=== PATIENT | female | born 2000 | race African-American/Black ===

== ENCOUNTER 2021-03-20 10:05 | Emergency (ER) | payer OTHER ==
[~2021-03-20] VITALS: Ht 154.9 cm; Wt 63.5 kg
[2021-03-20 12:03] LABS: HEMOGLOBIN 13.6 g/dl (12.0-15.5); MEAN CORPUSCULAR HEMOGLOBIN 31.7 pg (27.0-33.0); MEAN CORPUSCULAR VOLUME 93.2 fl (80.0-96.0); PLATELET COUNT, AUTOMATED 378 10^3/uL (150-450); RED BLOOD COUNT 4.29 10^6/uL (4.00-5.40); WHITE BLOOD COUNT 8.3 10^3/uL (4.0-10.0)
--- NOTE | 2021-03-20 12:35 | REP ---
INDICATION: vaginal bleeding 3 weeks gestation. COMPARISON: None. TECHNIQUE: Transvesical and transvaginal imaging FINDINGS: The uterus measures 8.2 x 4.1 x 4.5 cm. The parenchymal echo pattern is within normal limits. The endometrial echo complex is trilaminar measuring 1 cm in thickness. There is no free fluid in the endometrial cavity. There is no gestational sac. There is an incidental small cyst in the myometrium. The right ovary measures 2.2 x 1.6 x 3.2 cm and is within normal limits with an RI 0.48 The left ovary measures 3.3 x 1.8 x 2.4 cm and is within normal limits with an RI 0.53 The urinary bladder measures 7.6 x 2.5 cm. IMPRESSION: Pelvic ultrasonography is within normal limits. There is no evidence of an intrauterine or extra uterine . <Electronically signed by Carroll Schwartz > 03/20/21 [id number]
[2021-03-20 13:39] LABS: GC DNA AMPLIFICATION NEGATIVE (NEGATIVE)
[2021-03-20 14:20] VITALS: BP 110/68
== END 2021-03-20 14:19 | disposition home or self-care (01) ==
LOC: M ED 10:05
DX: Z32.01 Encounter for pregnancy test, result positive (principal); O20.8 Other hemorrhage in early pregnancy; Z3A.01 Less than 8 weeks gestation of pregnancy

== ENCOUNTER 2021-05-23 11:50 | Emergency (ER) | payer OTHER ==
[~2021-05-23] VITALS: Ht 154.9 cm; Wt 125.0 kg
[2021-05-23 14:36] VITALS: BP 114/66
== END 2021-05-23 14:37 | disposition home or self-care (01) ==
LOC: M ED 11:50
DX: Z32.01 Encounter for pregnancy test, result positive (principal)

== ENCOUNTER 2021-05-30 12:51 | Emergency (ER) | payer OTHER ==
[~2021-05-30] VITALS: Ht 154.9 cm; Wt 63.0 kg
[2021-05-30] MEDS ORDERED: NS 1,000 ML IV ONE (15:50)
[2021-05-30] MEDS ORDERED: METOCLOPRAMIDE INJ 10MG/2ML VIAL (J2765 PER 1) IV ONE (15:50)
[2021-05-30 16:43] LABS: BASO # 0.1 10^3/uL (0.0-0.2); BASO % 0.6 % (0.0-1.0); HEMATOCRIT 40.7 % (36.0-47.0); HEMOGLOBIN 13.8 g/dl (12.0-15.5); LYMPH # 2.4 10^3/uL (1.5-5.0); MEAN CORPUSCULAR HEMOGLOBIN 30.9 pg (27.0-33.0); MEAN CORPUSCULAR HGB CONC 33.9 g/dl (32.0-36.5); MEAN CORPUSCULAR VOLUME 91.3 fl (80.0-96.0); MONO # 0.7 10^3/uL (0.0-0.8); MONO % 5.8 % (2.0-8.0); NEUTROPHILS # 9.4 10^3/uL (1.5-8.5); NEUTROPHILS % 74.2 % (36.0-66.0); PLATELET COUNT, AUTOMATED 328 10^3/uL (150-450); RED BLOOD COUNT 4.46 10^6/uL (4.00-5.40); WHITE BLOOD COUNT 12.6 10^3/uL (4.0-10.0)
[2021-05-30 17:34] LABS: ALBUMIN 3.6 GM/DL (3.2-5.2); ALT/SGPT 17 U/L (12-78); BILIRUBIN,DIRECT 0.2 MG/DL (0.0-0.2); BILIRUBIN,TOTAL 0.3 MG/DL (0.2-1.0); BLOOD UREA NITROGEN 11 MG/DL (7-18); CALCIUM LEVEL 8.9 MG/DL (8.5-10.1); CARBON DIOXIDE LEVEL 18 MEQ/L (21-32); CHLORIDE LEVEL 104 MEQ/L (98-107); CREATININE FOR GFR 0.78 MG/DL (0.55-1.30); GLUCOSE, FASTING 58 MG/DL (70-100); HCG, SERUM QUANTITATIVE 55665 MIU/ML; LIPASE 64 U/L (73-393); POTASSIUM SERUM 4.3 MEQ/L (3.5-5.1); SODIUM LEVEL 134 MEQ/L (136-145); TOTAL PROTEIN 7.8 GM/DL (6.4-8.2)
[2021-05-30] MEDS ORDERED: ONDANSETRON 4MG/2ML VIAL IV ONE (17:35)
[2021-05-30] MEDS ORDERED: ONDA4TAB6 PO (18:02)
[2021-05-30 18:33] VITALS: BP 106/56
== END 2021-05-30 18:37 | disposition home or self-care (01) ==
LOC: M ED 12:51
DX: O21.9 Vomiting of pregnancy, unspecified (principal)
CPT/HCPCS: 80048; 80076; 83690; 84702; 85025; 96361; 96374; 96375; 99284; J2405; J2765

== ENCOUNTER 2021-07-04 19:36 | Emergency (ER) | payer OTHER ==
[~2021-07-04] VITALS: Ht 154.9 cm; Wt 59.1 kg
[~2021-07-04 19:36] MED LIST: ONDA4TAB6 PO
[2021-07-04] MEDS ORDERED: PREN1TAB11 PO (19:57)
[2021-07-04 20:17] LABS: BASO # 0.1 10^3/uL (0.0-0.2); BASO % 0.5 % (0.0-1.0); EOS # 0.1 10^3/uL (0.0-0.5); EOS % 0.8 % (0.0-3.0); HEMATOCRIT 35.4 % (36.0-47.0); LYMPH # 4.1 10^3/uL (1.5-5.0); LYMPH % 30.4 % (24.0-44.0); MEAN CORPUSCULAR HEMOGLOBIN 30.7 pg (27.0-33.0); MEAN CORPUSCULAR HGB CONC 33.9 g/dl (32.0-36.5); MEAN CORPUSCULAR VOLUME 90.5 fl (80.0-96.0); MONO # 0.9 10^3/uL (0.0-0.8); MONO % 6.9 % (2.0-8.0); NEUTROPHILS # 8.3 10^3/uL (1.5-8.5); PLATELET COUNT, AUTOMATED 326 10^3/uL (150-450); RED BLOOD COUNT 3.91 10^6/uL (4.00-5.40); WHITE BLOOD COUNT 13.6 10^3/uL (4.0-10.0)
[2021-07-04 21:04] LABS: BLOOD UREA NITROGEN 9 MG/DL (7-18); CARBON DIOXIDE LEVEL 24 MEQ/L (21-32); CHLORIDE LEVEL 107 MEQ/L (98-107); GLUCOSE, FASTING 75 MG/DL (70-100); HCG, SERUM QUANTITATIVE 196503 MIU/ML; POTASSIUM SERUM 4.3 MEQ/L (3.5-5.1); SODIUM LEVEL 136 MEQ/L (136-145)
[2021-07-05 00:05] LABS: GC DNA AMPLIFICATION NEGATIVE (NEGATIVE)
[2021-07-05] MEDS ORDERED: NITROFURANTOIN (MACROBID) 100 MG CAP PO ONE (00:10)
[2021-07-05] MEDS ORDERED: MACR100C43 PO (00:11)
[2021-07-05 00:56] VITALS: BP 118/68
== END 2021-07-05 00:58 | disposition home or self-care (01) ==
LOC: M ED 19:36
DX: O23.41 Unspecified infection of urinary tract in pregnancy, first trimester (principal); O30.041 Twin pregnancy, dichorionic/diamniotic, first trimester; Z3A.11 11 weeks gestation of pregnancy

== ENCOUNTER 2021-10-17 13:49 | Emergency (ER) | payer OTHER ==
[~2021-10-17 13:49] MED LIST changes: +MACR100C43 PO; +PREN1TAB11 PO
[2021-10-17] MEDS ORDERED: ONDANSETRON 4MG/2ML VIAL IV ONE (14:20)
[2021-10-17 14:55] LABS: BASO # 0.1 10^3/uL (0.0-0.2); BASO % 0.5 % (0.0-1.0); EOS # 0.1 10^3/uL (0.0-0.5); EOS % 0.7 % (0.0-3.0); HEMATOCRIT 35.3 % (36.0-47.0); HEMOGLOBIN 12.1 g/dl (12.0-15.5); MEAN CORPUSCULAR HEMOGLOBIN 31.9 pg (27.0-33.0); MEAN CORPUSCULAR HGB CONC 34.3 g/dl (32.0-36.5); MEAN CORPUSCULAR VOLUME 93.1 fl (80.0-96.0); NEUTROPHILS # 8.3 10^3/uL (1.5-8.5); NEUTROPHILS % 72.2 % (36.0-66.0); PLATELET COUNT, AUTOMATED 325 10^3/uL (150-450); RED BLOOD COUNT 3.79 10^6/uL (4.00-5.40); WHITE BLOOD COUNT 11.5 10^3/uL (4.0-10.0)
[2021-10-17 15:21] LABS: BLOOD UREA NITROGEN 7 MG/DL (7-18); CALCIUM LEVEL 8.7 MG/DL (8.5-10.1); CARBON DIOXIDE LEVEL 21 MEQ/L (21-32); CHLORIDE LEVEL 109 MEQ/L (98-107); CREATININE FOR GFR 0.61 MG/DL (0.55-1.30); GLUCOSE, FASTING 91 MG/DL (70-100); POTASSIUM SERUM 4.1 MEQ/L (3.5-5.1); SODIUM LEVEL 137 MEQ/L (136-145)
[2021-10-17] MEDS ORDERED: ONDA4TAB6 PO (16:47)
[2021-10-17 17:00] VITALS: BP 134/83
== END 2021-10-17 17:02 | disposition home or self-care (01) ==
LOC: EDBD 13:49 → M ED 13:49
DX: O99.891 Other specified diseases and conditions complicating pregnancy (principal); R55 Syncope and collapse; Z3A.00 Weeks of gestation of pregnancy not specified
CPT/HCPCS: 80048; 85025; 93005; 93041; 94760; 96374; 99285; J2405

== ENCOUNTER 2021-12-05 00:15 | Inpatient (IN) | payer OTHER ==
[2021-12-05] VITALS (35 sets, daily range): BP systolic 128–212; BP diastolic 71–129
[~2021-12-05] VITALS: Ht 157.5 cm; Wt 85.4 kg
[2021-12-05] MEDS ORDERED: LACTATED RINGER'S 1000 ML IV STA (00:56)
[2021-12-05] MEDS ORDERED: PENICILLIN G POTASSIUM IV 5 MU in D5W MINI-BAG PLUS 100 ML IV STA (00:56)
[2021-12-05] MEDS ORDERED: OXYTOCIN DRIP 30 UNITS in IV 1 EA IV PRN ×4 (01:00)
[2021-12-05] MEDS ORDERED: LR 1,000 ML IV SCH (01:00)
[2021-12-05] MEDS ORDERED: CARBOPROST TROMETHAMINE 250 MCG/ML AMP IM PRN (01:00)
[2021-12-05] MEDS ORDERED: LIDOCAINE 1% MDV 20ML VIAL INFIL PRN (01:00)
[2021-12-05] MEDS ORDERED: BETAMETHASONE SOLUSPAN 6MG/ML 5ML VIAL (J0702 PER 3MG) IM SCH (01:00)
[2021-12-05] MEDS ORDERED: METHYLERGONOVINE MALEATE 0.2 MG/ML VIAL (J2210) IM PRN (01:00)
[2021-12-05] MEDS ORDERED: TRANEXAMIC ACID INJection 1,000 MG in NS 100 ML IV PRN (01:00)
[2021-12-05 01:55] LABS: HEMATOCRIT 34.8 % (36.0-47.0); HEMOGLOBIN 11.6 g/dl (12.0-15.5); MEAN CORPUSCULAR HEMOGLOBIN 29.9 pg (27.0-33.0); MEAN CORPUSCULAR HGB CONC 33.3 g/dl (32.0-36.5); MEAN CORPUSCULAR VOLUME 89.7 fl (80.0-96.0); PLATELET COUNT, AUTOMATED 312 10^3/uL (150-450); RED BLOOD COUNT 3.88 10^6/uL (4.00-5.40); WHITE BLOOD COUNT 15.9 10^3/uL (4.0-10.0)
[2021-12-05 02:06] LABS: APPEARANCE, URINE CLEAR (CLEAR); BACTERIA, URINE AUTO NEGATIVE (NEGATIVE); BILIRUBIN, URINE AUTO NEGATIVE (NEGATIVE); BLOOD, URINE BLOOD 1+ (NEGATIVE); COLOR, URINE YELLOW (YELLOW); GLUCOSE, URINE (UA) AUTO NEGATIVE (NEGATIVE); KETONE, URINE AUTO NEGATIVE (NEGATIVE); LEUKOCYTE ESTERASE, URINE AUTO NEGATIVE (NEGATIVE); NITRITE, URINE AUTO NEGATIVE (NEGATIVE); PROTEIN, URINE AUTO 3+ mg/dL (NEGATIVE); RBC, URINE AUTO 0 /HPF (0-3); SPECIFIC GRAVITY URINE AUTO 1.007 (1.002-1.035); SQUAMOUS EPITHELIAL CELL UR AU 0 /HPF (0-6); UROBILINOGEN, URINE AUTO 0.2 mg/dL (0.0-2.0); WBC, URINE AUTO 2 /HPF (0-3)
[2021-12-05] MEDS ORDERED: LR 500 ML IV PRN (02:10)
[2021-12-05] MEDS ORDERED: diphenhydrAMINE 50MG/ML VIAL (J1200) IV PRN (02:10)
[2021-12-05] MEDS ORDERED: EPIDURAL/PCA KEYS XX PRN (02:10)
[2021-12-05] MEDS ORDERED: NALOXONE INJ 0.4MG/1ML VIAL (J2310 PER 1MG) IV PRN (02:10)
[2021-12-05] MEDS ORDERED: ePHEDrine SULFATE 25 MG/5 ML(5MG/ML) SYRINGE IVP PRN (02:10)
[2021-12-05] MEDS ORDERED: ONDANSETRON 4MG 2ML VIAL IV PRN ×2 (02:10→05:20)
[2021-12-05] MEDS ORDERED: FENTANYL/ROPIVACAINE/NACL BAG 100 ML EPIDURAL SCH (02:10)
[2021-12-05 02:16] LABS: ALT/SGPT 18 U/L (12-78); BILIRUBIN,TOTAL < 0.1 MG/DL (0.2-1.0); CREATININE FOR GFR 0.82 MG/DL (0.55-1.30); LDH LACTATE DEHYDROGENASE 233 U/L (84-246); URIC ACID 6.7 MG/DL (2.6-6.0)
[2021-12-05] MEDS ORDERED: FENTANYL 2MCG/ML ROPIVACAINE 0.2% IN 0.9% NACL 100ML IVBAG As Ordered ONE (02:18)
[2021-12-05 03:35] LABS: GC DNA AMPLIFICATION NEGATIVE (NEGATIVE)
[2021-12-05 05:19] LABS: CORD GAS ABE V -10.7; CORD GAS HCO3 V 17.6 MEQ/L; CORD GAS O2 SAT V 80.8 %; CORD GAS PCO2 V 48.4 mmHg; CORD GAS PH V 7.179 UNITS; CORD GAS PO2 V 39.8 mmHg; CORD GAS SBC V 15.8 MEQ/L; CORD GAS TCO2 V 19.1 MEQ/L
[2021-12-05] MEDS ORDERED: OXYTOCIN DRIP 30 UNITS in IV 1 EA IV SCH ×4 (05:20)
[2021-12-05] MEDS ORDERED: RHOGAM 300 MCG (1500 IU) INJ (J2790) IM SCH (05:20)
[2021-12-05] MEDS: LR 1,000 ML IV SCH ×2 (05:20→13:20)
[2021-12-05] MEDS ORDERED: METHYLERGONOVINE MALEATE 0.2 MG TAB PO PRN (05:20)
[2021-12-05] MEDS ORDERED: DIBUCAINE 1% OINTMENT 30GM TOP PRN (05:20)
[2021-12-05] MEDS ORDERED: PROMETHAZINE 25 MG TAB PO PRN (05:20)
[2021-12-05] MEDS ORDERED: DOCUSATE SODIUM 100MG CAPSULE PO PRN (05:20)
[2021-12-05 05:21] LABS: CORD GAS ABE A -12.3; CORD GAS HCO3 A 17.5 MEQ/L; CORD GAS O2 SAT A 40.6 %; CORD GAS PCO2 A 56.5 mmHg; CORD GAS PH A 7.108 UNITS; CORD GAS PO2 A 23.4 mmHg; CORD GAS SBC A 13.9 MEQ/L; CORD GAS TCO2 A 19.2 MEQ/L
[2021-12-05] MEDS ORDERED: PENICILLIN G POTASSIUM IV 2.5 MU in IV 1 EA IV SCH (05:30)
[2021-12-05 05:33] LABS: CORD GAS ABE V -8.9; CORD GAS O2 SAT V 51.7 %; CORD GAS PCO2 V 47.7 mmHg; CORD GAS PH V 7.217 UNITS; CORD GAS PO2 V 24.9 mmHg; CORD GAS SBC V 16.5 MEQ/L; CORD GAS TCO2 V 20.4 MEQ/L
[2021-12-05] MEDS: LABETALOL 200 MG TAB PO SCH ×2 (06:21→17:39)
[2021-12-05] MEDS ORDERED: hydrALAZINE 20MG/ML 1ML VIAL (J0360 PER 20MG) IV STA (06:58)
[2021-12-05] MEDS: IBUPROFEN 800 MG TAB PO SCH ×3 (07:13→21:37)
[2021-12-05] MEDS: ACETAMINOPHEN 500 MG TAB PO SCH ×4 (07:14→23:36)
[2021-12-05] MEDS ORDERED: PRENATAL VITAMINS CHEWABLE TABLET PO SCH (09:00)
[2021-12-05] MEDS: PRENATAL VITAMINS CHEWABLE TABLET PO SCH (09:00)
[2021-12-06] VITALS (7 sets, daily range): BP systolic 131–162; BP diastolic 72–98
[2021-12-06] MEDS: IBUPROFEN 800 MG TAB PO SCH ×3 (05:46→21:20)
[2021-12-06] MEDS: LABETALOL 200 MG TAB PO SCH ×2 (05:46→18:33)
[2021-12-06] MEDS: ACETAMINOPHEN 500 MG TAB PO SCH ×4 (05:47→23:20)
[2021-12-06 07:07] LABS: HEMATOCRIT 30.4 % (36.0-47.0); HEMOGLOBIN 10.2 g/dl (12.0-15.5); MEAN CORPUSCULAR HEMOGLOBIN 30.4 pg (27.0-33.0); MEAN CORPUSCULAR HGB CONC 33.6 g/dl (32.0-36.5); MEAN CORPUSCULAR VOLUME 90.5 fl (80.0-96.0); PLATELET COUNT, AUTOMATED 265 10^3/uL (150-450); RED BLOOD COUNT 3.36 10^6/uL (4.00-5.40)
[2021-12-06] MEDS: PRENATAL VITAMINS CHEWABLE TABLET PO SCH (09:19)
[2021-12-07 02:00] VITALS: BP 150/98
[2021-12-07] MEDS: IBUPROFEN 800 MG TAB PO SCH ×3 (05:20→21:20)
[2021-12-07] MEDS: ACETAMINOPHEN 500 MG TAB PO SCH ×4 (05:20→23:20)
[2021-12-07] MEDS: LABETALOL 200 MG TAB PO SCH ×2 (05:53→17:36)
[2021-12-07 06:00] VITALS: BP 131/72
[2021-12-07] MEDS ORDERED: LABE20TAB PO (06:26)
[2021-12-07] MEDS ORDERED: ACET-683 PO (06:26)
[2021-12-07] MEDS ORDERED: IBUP80TA PO (06:26)
[2021-12-07] MEDS ORDERED: COLA100C5 PO (06:26)
[2021-12-07] MEDS: PRENATAL VITAMINS CHEWABLE TABLET PO SCH (09:00)
[2021-12-07] MEDS ORDERED: MEASLES,MUMPS,RUBELLA VACCINE INJ (MMR-II) (90707) SC.IMMUN ONE (09:00)
[2021-12-07 10:59] VITALS: BP 137/87
[2021-12-07 13:50] VITALS: BP 133/85
[2021-12-07 17:30] VITALS: BP 146/90
[2021-12-07 22:00] VITALS: BP 121/74
[2021-12-08 02:00] VITALS: BP 139/71
[2021-12-08] MEDS: ACETAMINOPHEN 500 MG TAB PO SCH ×2 (05:20→11:20)
[2021-12-08] MEDS: IBUPROFEN 800 MG TAB PO SCH (05:20)
[2021-12-08 06:20] VITALS: BP 135/75
[2021-12-08 06:22] VITALS: BP 135/75
[2021-12-08] MEDS: LABETALOL 200 MG TAB PO SCH (06:22)
[2021-12-08] MEDS: PRENATAL VITAMINS CHEWABLE TABLET PO SCH (09:00)
[2021-12-08 10:00] VITALS: BP 124/76
== END 2021-12-08 14:00 | disposition home or self-care (01) | DRG 807 ==
LOC: M LDO 00:15 → M LDI 01:00 → M OBS 09:34
PROVIDERS: ADMIT Obstetrics & Gynecology; ATTEND Obstetrics & Gynecology
PROC: 10E0XZZ Delivery of Products of Conception, External Approach (ICD-10-PCS; principal; 2021-12-05)
PROC: 10907ZC Drainage of Amniotic Fluid, Therapeutic from Products of Conception, Via Natural or Artificial Opening (ICD-10-PCS; 2021-12-05)
DX: O60.14X0 Preterm labor third trimester with preterm delivery third trimester, not applicable or unspecified (principal); Z37.2 Twins, both liveborn; Z3A.33 33 weeks gestation of pregnancy; O30.043 Twin pregnancy, dichorionic/diamniotic, third trimester; O99.824 Streptococcus B carrier state complicating childbirth; O32.1XX2 Maternal care for breech presentation, fetus 2

== ENCOUNTER → 2022-07-25 | Outpatient (REF) | payer OTHER ==
[~2022-07-25] MED LIST changes: +ACET-683 PO; +COLA100C5 PO; +IBUP80TA PO; +LABE20TAB PO
== END ==
LOC: M LAB REF 21:55
PROVIDERS: ATTEND Physician Assistant
DX: Z32.00 Encounter for pregnancy test, result unknown (principal)

== ENCOUNTER 2022-08-07 13:08 | Emergency (ER) | payer OTHER ==
[~2022-08-07] VITALS: Ht 154.9 cm; Wt 75.4 kg
[2022-08-07 13:57] LABS: BASO # 0.1 10^3/uL (0.0-0.2); BASO % 0.7 % (0.0-1.0); EOS # 0.1 10^3/uL (0.0-0.5); HEMATOCRIT 38.6 % (36.0-47.0); HEMOGLOBIN 12.6 g/dl (12.0-15.5); LYMPH # 2.5 10^3/uL (1.5-5.0); LYMPH % 21.4 % (24.0-44.0); MEAN CORPUSCULAR HEMOGLOBIN 29.6 pg (27.0-33.0); MEAN CORPUSCULAR HGB CONC 32.6 g/dl (32.0-36.5); MEAN CORPUSCULAR VOLUME 90.6 fl (80.0-96.0); MONO # 0.9 10^3/uL (0.0-0.8); MONO % 7.3 % (2.0-8.0); NEUTROPHILS # 8.1 10^3/uL (1.5-8.5); NEUTROPHILS % 69.2 % (36.0-66.0); PLATELET COUNT, AUTOMATED 398 10^3/uL (150-450); RED BLOOD COUNT 4.26 10^6/uL (4.00-5.40); WHITE BLOOD COUNT 11.7 10^3/uL (4.0-10.0)
[2022-08-07 14:32] LABS: ALBUMIN 3.4 G/DL (3.2-5.2); BILIRUBIN,DIRECT 0.1 MG/DL (<0.4); BILIRUBIN,TOTAL 0.4 MG/DL (0.3-1.2); TOTAL PROTEIN 7.1 G/DL (5.7-8.2)
[2022-08-07 14:41] LABS: HCG, SERUM QUANTITATIVE 10806.8 MIU/ML (<4.2)
[2022-08-07] MEDS ORDERED: ONDANSETRON 4MG 2ML VIAL IV ONE (18:00)
[2022-08-07] MEDS ORDERED: NS 1,000 ML IV ONE (18:00)
[2022-08-07 19:11] LABS: BLOOD UREA NITROGEN 11 MG/DL (9-23); CALCIUM LEVEL 9.3 MG/DL (8.5-10.1); CARBON DIOXIDE LEVEL 23 MMOL/L (20-31); CHLORIDE LEVEL 104 MMOL/L (98-107); GLOMERULAR FILTRATION RATE > 60.0 (>60); GLUCOSE, FASTING 66 MG/DL (60-100); SODIUM LEVEL 134 MMOL/L (136-145)
[2022-08-07 20:03] LABS: GC DNA AMPLIFICATION NEGATIVE (NEGATIVE)
[2022-08-07] MEDS ORDERED: cefTRIAXone SOD 1 GM in D5W MINI-BAG PLUS 50 ML IV ONE (20:15)
[2022-08-07] MEDS ORDERED: CIPR500T39 PO (20:17)
[2022-08-07 21:20] VITALS: BP 128/66
== END 2022-08-07 21:29 | disposition home or self-care (01) ==
LOC: M ED 13:08
DX: O23.01 Infections of kidney in pregnancy, first trimester (principal); Z3A.01 Less than 8 weeks gestation of pregnancy
CPT/HCPCS: 76801; 76817; 80047; 80048; 80076; 81000; 81015; 83690; 84702; 85025; 87086; 87428; 87661; 87810; 87850; 93005; 93976; 96361; 96365; 96375; 99284; J0696; J2405

== ENCOUNTER 2022-08-11 14:45 | Emergency (ER) | payer OTHER ==
[~2022-08-11] VITALS: Ht 154.9 cm; Wt 74.6 kg
[~2022-08-11 14:45] MED LIST changes: +CIPR500T39 PO
[2022-08-11] MEDS ORDERED: NS 1,000 ML IV ONE (15:35)
[2022-08-11] MEDS ORDERED: ONDANSETRON 4MG 2ML VIAL IV ONE (15:35)
[2022-08-11 16:07] LABS: APPEARANCE, URINE HAZY (CLEAR); BACTERIA, URINE AUTO NEGATIVE (NEGATIVE); BILIRUBIN, URINE AUTO NEGATIVE (NEGATIVE); BLOOD, URINE BLOOD 1+ (NEGATIVE); COLOR, URINE YELLOW (YELLOW); GLUCOSE, URINE (UA) AUTO NEGATIVE (NEGATIVE); KETONE, URINE AUTO 1+ mg/dL (NEGATIVE); LEUKOCYTE ESTERASE, URINE AUTO 2+ (NEGATIVE); MUCUS, URINE SMALL (NEGATIVE); NITRITE, URINE AUTO NEGATIVE (NEGATIVE); PROTEIN, URINE AUTO NEGATIVE (NEGATIVE); RBC, URINE AUTO 3 /HPF (0-3); SPECIFIC GRAVITY URINE AUTO 1.015 (1.002-1.035); SQUAMOUS EPITHELIAL CELL UR AU 10 /HPF (0-6); UROBILINOGEN, URINE AUTO 0.2 mg/dL (0.0-2.0); WBC, URINE AUTO 8 /HPF (0-3)
[2022-08-11 16:15] LABS: BASO # 0.1 10^3/uL (0.0-0.2); BASO % 0.4 % (0.0-1.0); EOS # 0.1 10^3/uL (0.0-0.5); EOS % 0.4 % (0.0-3.0); HEMATOCRIT 39.6 % (36.0-47.0); HEMOGLOBIN 13.1 g/dl (12.0-15.5); LYMPH # 2.9 10^3/uL (1.5-5.0); LYMPH % 20.7 % (24.0-44.0); MEAN CORPUSCULAR HEMOGLOBIN 30.2 pg (27.0-33.0); MEAN CORPUSCULAR HGB CONC 33.1 g/dl (32.0-36.5); MEAN CORPUSCULAR VOLUME 91.2 fl (80.0-96.0); MONO # 0.9 10^3/uL (0.0-0.8); MONO % 6.2 % (2.0-8.0); NEUTROPHILS % 71.8 % (36.0-66.0); PLATELET COUNT, AUTOMATED 447 10^3/uL (150-450); RED BLOOD COUNT 4.34 10^6/uL (4.00-5.40)
[2022-08-11 16:32] LABS: BLOOD UREA NITROGEN 7 MG/DL (9-23); CALCIUM LEVEL 9.1 MG/DL (8.5-10.1); CARBON DIOXIDE LEVEL 24 MMOL/L (20-31); CHLORIDE LEVEL 102 MMOL/L (98-107); GLOMERULAR FILTRATION RATE > 60.0 (>60); GLUCOSE, FASTING 72 MG/DL (60-100); POTASSIUM SERUM 4.1 MMOL/L (3.5-5.1); SODIUM LEVEL 134 MMOL/L (136-145)
[2022-08-11 16:48] LABS: HCG, SERUM QUANTITATIVE 30216.3 MIU/ML (<4.2)
[2022-08-11] MEDS ORDERED: ONDA4TAB6 PO (17:53)
[2022-08-11 17:59] VITALS: BP 106/67
== END 2022-08-11 18:03 | disposition home or self-care (01) ==
LOC: M ED 14:45
DX: O23.40 Unspecified infection of urinary tract in pregnancy, unspecified trimester (principal)
CPT/HCPCS: 76775; 80048; 81001; 84702; 85025; 96374; 99284; J2405

== ENCOUNTER → 2022-10-18 | Outpatient (CLI) | payer OTHER ==
[2022-10-18 16:18] LABS: APPEARANCE, URINE HAZY (CLEAR); BACTERIA, URINE AUTO NEGATIVE (NEGATIVE); BILIRUBIN, URINE AUTO NEGATIVE (NEGATIVE); BLOOD, URINE BLOOD 2+ (NEGATIVE); COLOR, URINE YELLOW (YELLOW); GLUCOSE, URINE (UA) AUTO NEGATIVE (NEGATIVE); KETONE, URINE AUTO NEGATIVE (NEGATIVE); LEUKOCYTE ESTERASE, URINE AUTO 2+ (NEGATIVE); MUCUS, URINE SMALL (NEGATIVE); NITRITE, URINE AUTO NEGATIVE (NEGATIVE); PROTEIN, URINE AUTO NEGATIVE (NEGATIVE); RBC, URINE AUTO 8 /HPF (0-3); SPECIFIC GRAVITY URINE AUTO 1.011 (1.002-1.035); SQUAMOUS EPITHELIAL CELL UR AU 7 /HPF (0-6); UROBILINOGEN, URINE AUTO 0.2 mg/dL (0.0-2.0); WBC, URINE AUTO 9 /HPF (0-3)
[2022-10-18 16:27] LABS: BASO # 0.1 10^3/uL (0.0-0.2); BASO % 0.4 % (0.0-1.0); EOS # 0.1 10^3/uL (0.0-0.5); EOS % 0.9 % (0.0-3.0); HEMATOCRIT 36.8 % (36.0-47.0); HEMOGLOBIN 12.4 g/dl (12.0-15.5); LYMPH # 2.2 10^3/uL (1.5-5.0); MEAN CORPUSCULAR HEMOGLOBIN 30.6 pg (27.0-33.0); MEAN CORPUSCULAR HGB CONC 33.7 g/dl (32.0-36.5); MEAN CORPUSCULAR VOLUME 90.9 fl (80.0-96.0); MONO # 0.7 10^3/uL (0.0-0.8); MONO % 6.1 % (2.0-8.0); NEUTROPHILS # 8.4 10^3/uL (1.5-8.5); NEUTROPHILS % 73.2 % (36.0-66.0); PLATELET COUNT, AUTOMATED 379 10^3/uL (150-450); RED BLOOD COUNT 4.05 10^6/uL (4.00-5.40); WHITE BLOOD COUNT 11.5 10^3/uL (4.0-10.0)
[2022-10-18 17:15] LABS: HEPATITIS B SURFACE ANTIGEN NEGATIVE (NEGATIVE)
== END ==
LOC: M LAB 15:30
PROVIDERS: ATTEND Obstetrics & Gynecology
DX: Z36.89 Encounter for other specified antenatal screening (principal)

== ENCOUNTER 2022-10-25 08:06 | Emergency (ER) | payer OTHER ==
[~2022-10-25] VITALS: Ht 157.5 cm; Wt 75.7 kg
[2022-10-25] MEDS ORDERED: MICO2CRE7 PV (11:38)
[2022-10-25 12:18] VITALS: BP 109/62; TEMP 97.7; O2SAT 100
[2022-10-25 12:28] LABS: GC DNA AMPLIFICATION NEGATIVE (NEGATIVE)
== END 2022-10-25 12:27 | disposition home or self-care (01) ==
LOC: M ED 08:06
DX: O23.592 Infection of other part of genital tract in pregnancy, second trimester (principal); Z3A.17 17 weeks gestation of pregnancy

== ENCOUNTER 2023-02-05 04:36 | Outpatient (CLI) | payer OTHER ==
[~2023-02-05] VITALS: Ht 154.9 cm; Wt 87.3 kg
[~2023-02-05 04:36] MED LIST changes: +MICO2CRE7 PV
[2023-02-05 04:47] VITALS: BP 124/79; O2SAT 99
[2023-02-05] MEDS ORDERED: CYCLOBENZAPRINE 5MG TABLET PO ONE (06:00)
[2023-02-05] MEDS ORDERED: MAGNESIUM OXIDE 400MG TAB (MAG-OX) PO ONE (06:00)
[2023-02-05] MEDS ORDERED: ACETAMINOPHEN TAB 650MG DOSE (2X325MG) PO ONE (06:00)
== END 2023-02-05 06:36 | disposition home or self-care (01) ==
LOC: M LDO 04:36
PROVIDERS: ATTEND Obstetrics & Gynecology
DX: O26.893 Other specified pregnancy related conditions, third trimester (principal); M54.9 Dorsalgia, unspecified; Z3A.31 31 weeks gestation of pregnancy
CPT/HCPCS: 59025; G0463

== ENCOUNTER → 2024-02-04 | Outpatient (CLI) | payer OTHER ==
[~2024-02-04] MED LIST changes: +ISOVUE-370 76% 100ML VIAL As Ordered ONE; +ONDA-282 PO; -ONDA4TAB6 PO
== END ==
LOC: M RAD 15:45
PROVIDERS: ATTEND Surgery
DX: K42.9 Umbilical hernia without obstruction or gangrene (principal); K76.0 Fatty (change of) liver, not elsewhere classified; K57.30 Diverticulosis of large intestine without perforation or abscess without bleeding
CPT/HCPCS: 74177; Q9967

== ENCOUNTER 2024-07-28 11:31 | Emergency (ER) | payer OTHER ==
[~2024-07-28] VITALS: Ht 157.5 cm; Wt 92.1 kg
[~2024-07-28 11:31] MED LIST changes: -ISOVUE-370 76% 100ML VIAL As Ordered ONE
[2024-07-28 12:13] LABS: BASO # 0.1 10^3/uL (0.0-0.2); BASO % 0.5 % (0.0-1.0); EOS # 0.1 10^3/uL (0.0-0.5); EOS % 0.4 % (0.0-3.0); HEMATOCRIT 40.3 % (36.0-47.0); HEMOGLOBIN 13.2 g/dl (12.0-15.5); LYMPH % 12.4 % (24.0-44.0); MEAN CORPUSCULAR HGB CONC 32.8 g/dl (32.0-36.5); MEAN CORPUSCULAR VOLUME 91.6 fl (80.0-96.0); MONO % 6.3 % (2.0-8.0); NEUTROPHILS % 79.9 % (36.0-66.0); PLATELET COUNT, AUTOMATED 401 10^3/uL (150-450); WHITE BLOOD COUNT 16.2 10^3/uL (4.0-10.0)
[2024-07-28 12:39] LABS: BLOOD UREA NITROGEN 12 MG/DL (9-23); CALCIUM LEVEL 8.2 MG/DL (8.5-10.1); CARBON DIOXIDE LEVEL 21 MMOL/L (20-31); CHLORIDE LEVEL 112 MMOL/L (98-107); CREATININE FOR GFR 0.85 MG/DL (0.55-1.30); GLOMERULAR FILTRATION RATE > 60.0 (>60); GLUCOSE, FASTING 76 MG/DL (60-100); MAGNESIUM LEVEL 1.8 MG/DL (1.8-2.4); POTASSIUM SERUM 4.3 MMOL/L (3.5-5.1); SODIUM LEVEL 142 MMOL/L (136-145)
[2024-07-28 12:41] LABS: FREE T4 1.15 NG/DL (0.89-1.76)
[2024-07-28 12:42] LABS: HCG, SERUM QUALITATIVE NEGATIVE (NEGATIVE); THYROID STIMULATING HORMONE 1.124 uIU/ML (0.55-4.78)
[2024-07-28] MEDS: NS (Normal Saline) 0.9% 1,000 ML IV ONE (13:22)
[2024-07-28] MEDS: ACETAMINOPHEN *IV* 1,000 MG in IV 1 EA IV ONE (13:23)
[2024-07-28 13:26] LABS: AMPHETAMINES LEVEL URINE NEGATIVE (NEGATIVE); BARBITURATES URINE NEGATIVE (NEGATIVE); BENZODIAZEPINES URINE NEGATIVE (NEGATIVE); CANNABINOIDS URINE NEGATIVE (NEGATIVE); COCAINE METABOLITE URINE NEGATIVE (NEGATIVE); METHADONE URINE NEGATIVE (NEGATIVE); OPIATES URINE NEGATIVE (NEGATIVE); PHENCYCLIDINE URINE NEGATIVE (NEGATIVE)
[2024-07-28 15:04] LABS: CPK CREATINE PHOSPHOKINASE 209 U/L (34-145)
[2024-07-28 16:00] VITALS: BP 135/62; TEMP 98.2; O2SAT 98
== END 2024-07-28 16:05 | disposition home or self-care (01) ==
LOC: EDBD 11:31 → M ED 11:31
DX: R55 Syncope and collapse (principal)
CPT/HCPCS: 70450; 80048; 80307; 82550; 83735; 84439; 84443; 84703; 85025; 93005; 93041; 94760; 96365; 96366; 99285; J0131